=== PATIENT | male | born 2000 | race Caucasian/White ===

== ENCOUNTER 2023-01-22 08:11 | Emergency (ER) | payer BC, SELFPAY ==
[2023-01-22 08:12] VITALS: BP 135/69; PULSE 63; RESP 16; TEMP 36.6; O2SAT 98; BMI 27.8
--- NOTE | 2023-01-22 08:15 | EDS_ITS ---
HPI History of Present Illness Chief Complaint: Upper Extremity Injury Narrative Narrative: Patient is a very pleasant 22-year-old male who is presenting to the ER with chief complaint of right hand/wrist pain. 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 Patient was in a game yesterday. Patient had a ball hit him in the right wrist/hand. Patient had instant pain. Patient was icing it all night last night. Patient has not taken anything for pain this morning, ice was applied. Patient's father is at bedside, he is a radiation oncologist and his is a radiologist as well. Patient is right-hand dominant. Patient has no other acute injury at this time. Patient has swelling, pain to the dorsal medial aspect of his right wrist at the base of the fourth and fifth metacarpal and over the medial carpal bones as well. Father is concerned about any type of injury to the hook of the hamate. No other acute complaints at this time. PFSH PFSH Medical History no medical history Allergy/AdvReac Type Severity Reaction Status Date / Time No Known Allergies Allergy Verified 01/22/23 08:12 Social History Smoking Status: Never smoker ROS ROS ED ROS Narrative REVIEW OF SYSTEMS: Unless otherwise stated in this report the patient's positive and negative responses for review of systems for constitutional, eyes, ENT, cardiovascular, respiratory, gastrointestinal, neurological, , musculoskeletal, and integument systems and related systems to the presenting problem are either stated in the history of present illness or were not pertinent or were negative for the symptoms and/or complaints related to the presenting medical problem. EXAM Physical Exam Narrative Exam Narrative: Vital signs reviewed and patient is not hypoxic. General: The patient appears well and in no apparent distress. Patient is resting comfortably on cart. Not toxic, lethargic, or listless. Skin: Warm, dry, no pallor noted. There is no rash noted. Head: Normocephalic, atraumatic Eye: Normal conjunctiva, no drainage, EOMI. PERRL. Ears, Nose, Mouth, and Throat: oral mucosa is moist. Nares patent. Mouth without vesicles. Cardiovascular: Regular Rate and Rhythm, Respiratory: Patient is in no distress, no accessory muscle use, Back: non-tender, Musculoskeletal: The patient has full range of motion of all extremities and joints with no difficulty except to his right wrist and hand. Patient has moderate tenderness to palpation to the base of the right fourth and fifth metacarpal, dorsal aspect. Patient has no tenderness to palpation to the anatomical snuffbox, no pain with axial loading of the right thumb. Patient does have pain over the lunate, triquetrum. Patient has moderate pain with flexion extension, abduction and abduction of the right wrist. Patient has full range of motion of right shoulder, right elbow with no difficulty. Patient has no pain to the 5 fingers the right hand. Patient has no motor, no sensory deficits. Neurological: A&O x4, normal speech, Psychiatric: Cooperative Const Vital Signs: 01/22/23 08:12 Temperature 97.8 F Temperature Source Temporal Pulse Rate 63 Respiratory Rate 16 Blood Pressure 135/69 H Blood Pressure Mean 91 Pulse Ox 98 Oxygen Delivery Method Room Air MDM MDM MDM Narrative Medical decision making narrative: Patient's right hand and right wrist x-ray were reviewed by Dr. Tucker. Patient appears to have a fracture to the right triquetrum of the right wrist, no other acute fracture, dislocation, or acute abnormality is seen. X-rays were shown to father. Father has called his and other physicians that he knows from the [place] area where her family is from. Patient's father is a radiation oncologist, patient's mother is a radiologist. They have spoken orthopedic surgeons as well. Father is requesting to have a CT of the wrist prior to disposition so they can know exactly what is fractured or not. They are concerned that patient senior baseball, has been doing extremely well, and the try to get as much information now to help with orthopedic follow-up. 0900 CT of the wrist was ordered at the request of father. Patient CT of the hand/wrist showed a fracture of the P[place] form. Results and a copy of the CT were given to the father and patient. Procedure note: Patient had a ulnar gutter splint applied to the right hand. Patient was neurovascular intact before and after the ulnar gutter splint was placed. Patient had appropriate alignment of bony structures. Patient had good cap refill, patient Toller procedure without difficulty. Patient is disposition from the ER. On-call orthopedic doctor and information was given to the patient and father. Patient's father has talked to multiple people from [place] including his who is a radiologist, multiple orthopedic doctors for their friends, and multiple physicians from [place]. Patient alternate Tylenol Motrin as needed for pain and continue ice. Patient is not to play baseball until he follows up with orthopedic surgeon. At the end of visit, patient and father were very thankful for all the time spent. No questions at discharge. Radiography Chest X-Ray - ED: Read by ED Physician (Patient's right hand and right wrist x- ray show probable fracture to the triquetrum, no other acute fracture, dislocation, or acute abnormality seen) Diagnostic Testing: HISTORY: right wrist. TECHNIQUE: Helically acquired images were obtained of the right wrist without intravenous contrast. 2-D reformats were performed by the technologist. A radiation dose optimization technique was used for this scan. 249 images. COMPARISON: XR same day. FINDINGS: BONES: Nondisplaced and comminuted fracture at the ulnar aspect of the pisiform. Small bone island in the distal radius. JOINT SPACES:? Mild widening of the joint space between the triquetrum and fusiform without dislocation. Other joint spaces maintained. SOFT TISSUES: Mild subcutaneous edema at the ulnar aspect of the wrist and hand. CT/Extremity Upper without Contra IMPRESSION: ? Nondisplaced fracture of the pisiform. Mild joint space widening between the triquetrum and pisiform, raising the possibility of ligamentous injury. Mild soft tissue swelling of the right wrist. ? Discharge Plan Triage Chief Complaint: Upper Extremity Injury ED Provider: John Tucker Dx/Rx/DC Orders Clinical Impression: Carpal bone fracture, Closed fracture carpal bone Instructions: ED Closed Hand Fracture (Adult), ED Splints and Casts Primary Care Provider: Care Physician,No Primary Referrals: Harinder Smith MD [Med Staff - Active Staff] - [facility] Doctor,Out of [Non-Staff] - Activity Restrictions/Additional Instructions: Keep your splint on at all times until you follow-up with orthopedic surgeon. Do not get your splint wet. Alternate Tylenol and Motrin for pain. Ice 20 minutes on, 20 minutes off on top of your splint. Follow-up with local orthopedic surgeon or your orthopedic surgeons at home in [place] Disposition Disposition: Home, Self Care Discharge Date/Time: 01/22/23 11:41
--- NOTE | 2023-01-22 08:30 | RAD_ITS ---
HISTORY: pain. TECHNIQUE: XR Wrist Min 3 Views. COMPARISON: None. FINDINGS: BONES : Nondisplaced fracture of the pisiform at its ulnar aspect. Mineralization unremarkable. JOINTS: No dislocation. Joint spaces maintained. SOFT TISSUES: Mild ulnar aspect soft tissue swelling. RAD/Wrist min 3 Views IMPRESSION: Nondisplaced fracture of the pisiform with overlying soft tissue swelling in the right wrist. Electronically Signed: Aida Vides MD at 8:52 EDT ,
--- NOTE | 2023-01-22 08:30 | RAD_ITS ---
HISTORY: pain. TECHNIQUE: XR Hand Min 3 Views. COMPARISON: None. FINDINGS: BONES : Nondisplaced fracture of the pisiform. Mineralization unremarkable. JOINTS: No dislocation. Joint spaces maintained. SOFT TISSUES: Ulnar-sided soft tissue swelling of the hand and wrist. RAD/Hand Min 3 Views IMPRESSION: Nondisplaced fracture of the right pisiform with overlying soft tissue swelling. Electronically Signed: Aida Vides MD at 8:51 EDT ,
--- NOTE | 2023-01-22 09:08 | CT_ITS ---
HISTORY: right wrist. TECHNIQUE: Helically acquired images were obtained of the right wrist without intravenous contrast. 2-D reformats were performed by the technologist. A radiation dose optimization technique was used for this scan. 249 images. COMPARISON: XR same day. FINDINGS: BONES: Nondisplaced and comminuted fracture at the ulnar aspect of the pisiform. Small bone island in the distal radius. JOINT SPACES: Mild widening of the joint space between the triquetrum and fusiform without dislocation. Other joint spaces maintained. SOFT TISSUES: Mild subcutaneous edema at the ulnar aspect of the wrist and hand. CT/Extremity Upper without Contra IMPRESSION: Nondisplaced fracture of the pisiform. Mild joint space widening between the triquetrum and pisiform, raising the possibility of ligamentous injury. Mild soft tissue swelling of the right wrist. Electronically Signed: Aida Vides MD at 10:02 EDT ,
== END 2023-01-22 11:41 | disposition home or self-care (01) ==
PROVIDERS: Emergency Provider Emergency Medicine; Visit Provider Emergency Medicine
DX: S62.164A Nondisplaced fracture of pisiform, right wrist, initial encounter for closed fracture (principal); W21.03XA Struck by baseball, initial encounter; Y93.64 Activity, baseball; Y92.320 Baseball field as the place of occurrence of the external cause
CPT/HCPCS: 29125; 73110; 73130; 73200; 99282